=== PATIENT | male | born 1985 ===

== ENCOUNTER 2021-03-06 14:44 | Outpatient (CLI) | payer BC ==
[2021-03-06 15:52] LABS: Hemoglobin 15.2 g/dL (13.5-17.5); Mean Corpuscular HGB CONC 35.8 g/dL (32.0-36.0); Mean Corpuscular Hemoglobin 31.1 pg (27.0-33.0); Mean Corpuscular Volume 86.9 fl (81.2-95.1); Mean Platelet Volume 10.3 fl (7.4-10.4); Platelet Count 294 10x3/uL (150-450); RBC Distribution Width 11.4 % (11.5-14.5); Red Blood Cell (RBC) Count 4.88 10x6/uL (4.32-5.72); White Blood Cell (WBC) Count 7.7 10x3/uL (3.5-10.5)
[2021-03-06 16:00] LABS: PTT 28.2 sec (22.0-33.0)
[2021-03-06 16:08] LABS: Anion Gap 13 mmol/L (10-20); BUN (Urea Nitrogen) 14 mg/dL (8.9-20.6); Calc. Creatinine Clearance 0 mL/min (70-130); Calcium 9.4 mg/dL (7.8-10.44); Carbon Dioxide 26 mmol/L (22-29); Chloride 105 mmol/L (98-107); Glucose 99 mg/dL (70-105); Sodium 140 mmol/L (136-145)
[2021-03-07 21:08] LABS: SARS-CoV-2 PCR by NAA Not Detected (NotDetected)
== END 2021-03-06 14:45 | disposition home or self-care (01) ==
LOC: CSHLAB 14:44
PROVIDERS: ATTEND Neurological Surgery
DX: Z01.818 Encounter for other preprocedural examination (principal); Z20.822 Contact with and (suspected) exposure to COVID-19; D35.2 Benign neoplasm of pituitary gland; J34.2 Deviated nasal septum
CPT/HCPCS: 80048; 85027; 85610; 85730; 93005; 93010; U0003; U0005

== ENCOUNTER 2021-03-06 15:00 | Inpatient (IN) | payer BC ==
[2021-03-11] MEDS ORDERED: Fentanyl 100 MCG/2 ML VIAL ONE (06:24)
[2021-03-11] MEDS ORDERED: PROPOFOL 20 ML ONE (06:24)
[2021-03-11] MEDS ORDERED: Rocuronium Bromide 10 MG/ML (10ML VIAL) ONE (06:25)
[2021-03-11] MEDS ORDERED: Ondansetron PF 4 MG/2 ML Vial ONE (06:25)
[2021-03-11] MEDS ORDERED: Dexamethasone 4 mg/ml Vial ONE (06:25)
[2021-03-11] MEDS ORDERED: Esmolol 100 MG/10 ML VIAL ONE (06:25)
[2021-03-11] MEDS ORDERED: Lidocaine 2% PF 5 ML VIAL ONE (06:26)
[2021-03-11] MEDS ORDERED: Midazolam HCl 2 mg/2 ml Vial ONE (06:47)
[2021-03-11] MEDS ORDERED: Famotidine/PF 20 mg/2ml Vial ONE (06:48)
[2021-03-11] MEDS ORDERED: Oxymetazoline HCl 0.05% ( 15 ML ) ONE (07:03)
[2021-03-11] MEDS ORDERED: Dexmedetomidine 200 MCG/2 ML VIAL ONE (07:10)
[2021-03-11] MEDS ORDERED: diphenhydrAMINE 50 MG/ML VIAL IVP PRN (07:12)
[2021-03-11] MEDS ORDERED: Promethazine HCl 25 MG/ML VIAL IM PRN (07:12)
[2021-03-11] MEDS ORDERED: Docusate 100 MG CAP PO PRN (07:12)
[2021-03-11] MEDS ORDERED: Ondansetron PF 4 MG/2 ML Vial IVP PRN (07:12)
[2021-03-11] MEDS ORDERED: Mag-Al 1200 mg/1200 mg/30 ML UDCUP PO PRN (07:12)
[2021-03-11] MEDS ORDERED: HYDROcodone/Acetaminophen 10/325 mg Tablet PO PRN (07:12)
[2021-03-11] MEDS ORDERED: Morphine 4 MG/ML VIAL SLOW IVP PRN (07:25)
[2021-03-11] MEDS ORDERED: ePHEDrine Sulfate 50 MG/10 ML VIAL ONE (07:37)
[2021-03-11] MEDS ORDERED: Neomycin-Polymyxin 1 ML AMP ONE (08:07)
[2021-03-11] MEDS ORDERED: Thrombin 5000 UNITS/5 ML VIAL ONE (08:07)
[2021-03-11] MEDS ORDERED: Lidocaine 1% w/Epinephrine 1:100K 20 ML VIAL ONE (08:07)
[2021-03-11] MEDS ORDERED: Ketorolac Tromethamine 30 MG/ML VIAL ONE (09:16)
[2021-03-11] MEDS ORDERED: Glycopyrrolate 0.2 MG/ML 5 ML SYRINGE ONE (09:21)
[2021-03-11] MEDS ORDERED: niCARdipine 25 MG in Sodium Chloride 0.9% 250 ML 250 ML IVPB SCH (09:45)
[2021-03-11 10:15] VITALS: BMI 33.2
[2021-03-11] MEDS: Sodium Chloride 0.9% 1,000 ML IV SCH ×2 (10:16→21:00)
[2021-03-11] MEDS: Amlodipine 10 MG TAB PO SCH (10:17)
[2021-03-11] MEDS: Metoprolol Tartrate 25 MG TAB PO SCH ×2 (10:17→20:59)
[2021-03-11] MEDS: CEFAZOLIN 2 GM in Premix Bag 1 BAG IVPB SCH ×2 (15:13→23:54)
[2021-03-11] MEDS: hydrALAZINE 20 MG/ML VIAL SLOW IVP PRN ×2 (15:38→21:13)
[2021-03-11] MEDS: HYDROcodone/Acetaminophen 7.5/325 mg Tablet PO PRN (19:07)
[2021-03-11] MEDS ORDERED: Escitalopram Oxalate 20 mg Tablet PO SCH (21:00)
[2021-03-12] MEDS: hydrALAZINE 20 MG/ML VIAL SLOW IVP PRN ×2 (01:50→05:31)
[2021-03-12] MEDS: HYDROcodone/Acetaminophen 7.5/325 mg Tablet PO PRN (01:57)
[2021-03-12] MEDS: CEFAZOLIN 2 GM in Premix Bag 1 BAG IVPB SCH ×2 (05:31→13:29)
[2021-03-12] MEDS ORDERED: Levothyroxine Sodium 50 MCG TAB PO SCH (06:00)
[2021-03-12] MEDS: Sodium Chloride 0.9% 1,000 ML IV SCH (08:08)
[2021-03-12] MEDS: Metoprolol Tartrate 25 MG TAB PO SCH (08:15)
[2021-03-12] MEDS: Amlodipine 10 MG TAB PO SCH (08:15)
[2021-03-12] MEDS ORDERED: predniSONE 20 MG TAB PO SCH (09:00)
[2021-03-12 11:58] VITALS: TEMP 98.4
[2021-03-12 15:49] VITALS: BP 128/79
[2021-03-12] MEDS ORDERED: predniSONE 10 MG TAB PO SCH (18:00)
== END 2021-03-12 16:28 | disposition home or self-care (01) | DRG 614 ==
LOC: CSHPED 03-11 05:27 → UNDOADMIN 03-11 05:27 → CSHICU 03-11 05:30 → EDSTATUS 03-11 15:00
PROVIDERS: ADMIT Neurological Surgery; ATTEND Neurological Surgery
PROC: 0GB00ZZ Excision of Pituitary Gland, Open Approach (ICD-10-PCS; principal; 2021-03-11)
PROC: 00U207Z Supplement Dura Mater with Autologous Tissue Substitute, Open Approach (ICD-10-PCS; 2021-03-11)
DX: D35.2 Benign neoplasm of pituitary gland (principal); G96.08 Other cranial cerebrospinal fluid leak; F41.9 Anxiety disorder, unspecified; Y83.8 Other surgical procedures as the cause of abnormal reaction of the patient, or of later complication, without mention of misadventure at the time of the procedure; Z79.82 Long term (current) use of aspirin
CPT/HCPCS: 36415; 82533; 88305; 88307; 88331; 88334; 88341; 88342; 88360; C1776; J0360; J0690; J1100; J1200; J1885; J2001; J2250; J2270; J2405; J2550; J2704; J3010; J7050; J7512; S0028